=== PATIENT | female | born 1975 | race American Indian/Alaskan Native ===

== ENCOUNTER 2017-03-15 08:29 | Outpatient (CLI) | payer OTHER ==
--- NOTE | 2017-03-15 16:45 | Mammography Report ---
BILATERAL DIGITAL SCREENING MAMMOGRAM with CAD: 03/15/17 08:29:00 CLINICAL: Routine screening. COMPARISON:None. FINDINGS: The breasts are heterogeneously dense, which may obscure small masses. A left posterior partially circumscribed asymmetry on the CC and exaggerated CC views requires additional imaging. No architectural distortion or suspicious calcifications.The right breast is negative. IMPRESSION: Left asymmetry requiring further workup. BI-RADS CATEGORY: 0 -- Additional Imaging Evaluation Required RECOMMENDATION: Recall for a left breast and axillary ultrasound. ACR BI-RADS MAMMOGRAPHIC CODES: 0 = Needs additional imaging evaluation; 1 = Negative; 2 = Benign; 3 = Probably benign; 4 = Suspicious; 5 = Malignant; 6 = Known biopsy-proven malignancy COMMENT: 1. Dense breast tissue, i.e., adenosis, fibrocystic changes, etc., may obscure an underlying neoplasm. 2. Approximately 10% of cancers are not detected with mammography. 3. A negative mammography report should not delay biopsy if a clinically suspicious mass is present. COMMENT: Patient follow-up letters are generated via our [employer] application.
== END 2017-03-15 08:30 | disposition home or self-care (01) ==
LOC: SPVWC 08:29
PROVIDERS: ATTEND Advanced Practice Midwife
DX: Z12.31 Encounter for screening mammogram for malignant neoplasm of breast (principal)
CPT/HCPCS: 77067; G0202

== ENCOUNTER 2017-03-30 14:28 | Outpatient (CLI) | payer OTHER ==
--- NOTE | 2017-03-31 08:45 | Ultrasound Report ---
LEFT DIGITAL DIAGNOSTIC MAMMOGRAM and LEFT BREAST ULTRASOUND: 03/30/17 14:28:00 CLINICAL: Recalled for asymmetry. COMPARISON:03/15/17 screening FINDINGS: ML and spot compression exaggerated CC views were performed. An oval circumscribed density at the pectoral muscle persists on the spot view. A circumscribed density with central fat is identified on the lateral view. Ultrasound of the upper outer left breast was performed and demonstrated no mass, cyst or shadowing. Lymph nodes with benign morphology and central fat are identified in the axillary tail and measure 1.8 x 0.6 x 1.0 cm and 1.4 x 1.0 x 1.2 cm. One of the lymph nodes correlates with the mammographic density. IMPRESSION: Benign left axillary tail lymph nodes and no suspicious finding. BI-RADS CATEGORY: 2 - - Benign RECOMMENDATION: Routine mammographic screening in one year. ACR BI-RADS MAMMOGRAPHIC CODES: 0 = Needs additional imaging evaluation; 1 = Negative; 2 = Benign; 3 = Probably benign; 4 = Suspicious; 5 = Malignant; 6 = Known biopsy-proven malignancy COMMENT: 1. Dense breast tissue, i.e., adenosis, fibrocystic changes, etc., may obscure an underlying neoplasm. 2. Approximately 10% of cancers are not detected with mammography. 3. A negative mammography report should not delay biopsy if a clinically suspicious mass is present. COMMENT: Patient follow-up letters are generated via our [employer] application.
== END 2017-03-30 14:29 | disposition home or self-care (01) ==
LOC: SPVWC 14:28
PROVIDERS: ATTEND Advanced Practice Midwife
DX: N64.59 Other signs and symptoms in breast (principal)
CPT/HCPCS: 76642; G0206

== ENCOUNTER 2018-12-11 15:41 | Outpatient (CLI) | payer MEDICAID ==
--- NOTE | 2018-12-12 09:10 | Mammography Report ---
BILATERAL DIGITAL SCREENING MAMMOGRAM with CAD: 12/11/18 15:41:00 CLINICAL: Routine screening. COMPARISON:03/15/17 FINDINGS: The breasts are heterogeneously dense, which may obscure small masses. No mass, architectural distortion or suspicious calcifications. IMPRESSION: No mammographic evidence of malignancy. BI-RADS CATEGORY: 1 - - Negative RECOMMENDATION: Routine mammographic screening in one year. COMMENT: Patient follow-up letters are generated by our [employer] application.
== END 2018-12-11 15:42 | disposition home or self-care (01) ==
LOC: SPVWC 15:41
PROVIDERS: ATTEND Advanced Practice Midwife
DX: Z12.31 Encounter for screening mammogram for malignant neoplasm of breast (principal)
CPT/HCPCS: 77067